=== PATIENT | female | born 1955 | race Hispanic/Latino ===

== ENCOUNTER 2019-01-08 14:03 | Inpatient (IN) | payer MEDICARE ==
[~2019-01-08] VITALS: Ht 160 cm; Wt 93.0 kg
--- NOTE | 2019-01-08 16:15 | Diagnostic Imaging Report ---
Abdomen, 2 views, with upright chest. History: Weakness, vomiting, fever, left arm pain. Findings: Cardiac silhouette and pulmonary vessels are normal. The lungs are clear. Air is scattered throughout nondilated small and large bowel. There are no air-fluid levels. There is no evidence of free air. There are no masses or abnormal calcifications. The osseous structures are intact. IMPRESSION: 1. No pulmonary abnormality. 2. Nonobstructive bowel gas pattern. Signed by: Arnold Danielle on 01/08/2019 4:12 PM
[2019-01-08 16:24] LABS: BASOPHILS # (AUTO) 0.1 (0.0-0.1); BASOPHILS % 0.5 % (0.0-1.0); HEMATOCRIT 29.8 % (34.2-44.1); HEMOGLOBIN 9.4 g/dL (12.0-16.0); LYMPHOCYTES # (AUTO) 1.1 (1.0-3.2); MEAN CORPUSCULAR HEMOGLOBIN 30.1 pg (28-32); MEAN CORPUSCULAR HGB CONC 31.5 g/dL (31-35); MEAN CORPUSCULAR VOLUME 95.5 fL (81-99); MONOCYTES # (AUTO) 0.4 (0.2-0.8); MONOCYTES % 3.7 % (4.4-11.3); NEUTROPHILS # (AUTO) 7.8 (2.1-6.9); NEUTROPHILS % 82.9 % (38.7-80.0); PLATELET COUNT 342 x10e3/uL (140-360); RED BLOOD COUNT 3.12 x10e6/uL (3.6-5.1); RED CELL DISTRIBUTION WIDTH 16.4 % (11.7-14.4)
[2019-01-08 16:29] LABS: BILIRUBIN,URINE NEGATIVE (NEGATIVE); CLARITY,URINE CLEAR (CLEAR); COLOR,URINE YELLOW (YELLOW); KETONES,URINE NEGATIVE (NEGATIVE); LEUKOCYTE ESTERASE ,URINE TRACE (NEGATIVE); NITRITE,URINE NEGATIVE (NEGATIVE); PROTEIN,URINE DIPSTICK NEGATIVE (NEGATIVE); URINE UROBILINOGEN 0.2 mg/dL (0.2 - 1)
[2019-01-08 16:35] LABS: INR 0.97; PROTHROMBIN TIME 13.4 seconds (11.9-14.5)
[2019-01-08 16:36] LABS: PARTIAL THROMBOPLASTIN TIME 24.1 seconds (23.8-35.5)
[2019-01-08 16:43] LABS: ALANINE AMINOTRANSFERASE 14 IU/L (0-55); ALBUMIN 3.4 g/dL (3.5-5.0); ALBUMIN/GLOBULIN RATIO 1.1 (0.8-2.0); ALKALINE PHOSPHATASE 107 IU/L (40-150); BLOOD UREA NITROGEN 32 mg/dL (7-26); BUN/CREATININE RATIO 44 (6-25); CALCIUM 9.6 mg/dL (8.4-10.2); CARBON DIOXIDE 23 mmol/L (22-29); CHLORIDE 104 mmol/L (98-107); CREATINE KINASE 35 IU/L (29-168); CREATININE, SERUM 0.72 mg/dL (0.57-1.11); EST GLOMERULAR FILTRATION RATE > 60 ML/MIN (60-); GLUCOSE 134 mg/dL (74-118); SODIUM 136 mmol/L (136-145)
[2019-01-08 16:56] LABS: BACTERIA,URINE MANY /HPF; EPITHELIAL CELLS,URINE MODERATE /LPF
[2019-01-08 17:00] LABS: THYROID STIMULATING HORMONE 0.875 uIU/mL (0.350-4.940)
[2019-01-08] MEDS ORDERED: CEFTRIAXONE SOD 1 GM/NS 50 ML 50 ML IV ONE (17:45)
--- NOTE | 2019-01-08 19:04 | NUR ---
REPORT GIVEN EVA WELDON.
[2019-01-08] MEDS: SODIUM CHLORIDE 0.9% 1000ML 1,000 ML IV SCH (19:05)
--- NOTE | 2019-01-08 19:10 | Diagnostic Imaging Report ---
CT Abdomen And Pelvis with Intravenous Contrast INDICATION: ^nausea and vomiting ^[id number] ^1824 TECHNIQUE: Thin collimation axial images obtained from the diaphragm to the level of the pubic symphysis following the uneventful administration of 100 cc of low osmolar, nonionic intravenous contrast. Dose reduction techniques used: Automated exposure control, adjustment of the mAs and/or kVp according to patient size, standardized low-dose protocol, and/or iterative reconstruction technique. RADIATION DOSE: Total DLP: 763.08 mGy*cm Estimated effective dose: (DLP x 0.015 x size factor) mSv CTDIvol has been reviewed. It is below the limits set by the Radiation Protocol Committee (RPC). COMPARISON: None. ABDOMEN FINDINGS: Lung Bases: Moderate hiatal hernia. The visualized portions of the mediastinum are normal. Liver: Mild steatosis. A cyst in segment 1 measures 1.5 x 1.3 cm. Gallbladder: Present and appears normal. No biliary ductal dilatation. Pancreas: Diffuse fatty atrophy without mass or ductal dilatation. Spleen: Normal in size. No evidence of mass. Adrenal Glands: No evidence for mass. Kidneys: Right: Normal enhancement. No soft tissue mass. No hydronephrosis. Left: Normal enhancement. No soft tissue mass. No hydronephrosis. Lymph Nodes: No lymphadenopathy. Aorta: Normal in diameter. PELVIS FINDINGS: Bowel: Stomach: Collapsed. No evidence of mass. Small Bowel: Normal in caliber with normal wall thickness. Large Bowel: Normal in caliber with normal wall thickness. Appendix: Normal appendix. Bladder: Normal. The uterus is absent. No adnexal mass. Bones: Moderate degenerative changes of the spine and left hip. Mild degenerative changes of the right hip. There is a bone island in the right pelvis measuring 10 mm. IMPRESSION: 1. No evidence for bowel obstruction or inflammation. Normal appendix. 2. Steatosis. Hepatic cyst. 3. Moderate hiatal hernia. Signed by: Dr. Bethany Alcaraz MD on 01/08/2019 7:07 PM
[2019-01-08] MEDS ORDERED: AZO CRANBERRY1 EAC1 PO (19:37)
[2019-01-08] MEDS ORDERED: FERROUS SULFATE PO (19:37)
[2019-01-08] MEDS ORDERED: MULTIVITAMINS1 EAC7 PO (19:37)
[2019-01-08] MEDS ORDERED: OXYBUTYNIN CHLOR5 MG PO (19:37)
--- OUTSIDE RECORDS SUMMARY | 2019-01-08 20:11 | XMS REPORT ---
Author Author [facility] Address Unknown Phone Unavailable Care Team Providers Care Patrol Supervisor Name Role Phone Ginny MAE Unavailable Unavailable Problems This patient has no known problems. Allergies, Adverse Reactions, Alerts This patient has no known allergies or adverse reactions. Medications This patient has no known medications. Results Test Description Test Time Test Comments Text Results Atomic Results Result Comments CT ABDOMEN/PELVIS W 2019-01-08 18:45:00 [place] [address] Patient Name: RASTA SEXTON MR #: [id number] : 1955 Age/Sex: 63/F Req #: [id number] Adm Physician: Ordered by: MARINE HORTON FORKLIFT PICKER Report #: [id number] Location: ER Room/Bed: Procedure: [id number] CT/CT ABDOMEN/PELVIS W Exam Date: 01/08/19 Exam Time: 1823 REPORT STATUS: Signed CT Abdomen And Pelvis with Intravenous Contrast IN DICATION: nausea and vomiting [id number] TECHNIQUE: Thin collimation axial images obtained from the diaphragm to the level of the pubic symphysis following the uneventful administration of 100 cc of low osmolar, nonionic intravenous contrast. Dose reduction techniques used: Automated exposure control, adjustment of the mAs and/or kVp according to patient size, standardized low-dose protocol, and/or iterative reconstruction technique. RADIATION DOSE: Total DLP: 763.08 mGy*cm Estimated effective dose: (DLP x 0.015 x size factor) mSv CTDIvol has been reviewed. It is below the limits set by the Radiation Protocol Committee (RPC). COMPARISON: None. ABDOMEN FINDINGS: Lung Bases: Moderate hiatal hernia. The visualized portions of the mediastinum are normal. Liver: Mild steatosis. A cyst in segment 1 measures 1.5 x 1.3 cm. Gallbladder: Present and appears normal. No biliary ductal dilatation. Pancreas: Diffuse fatty atrophy without mass or ductal dilatation. Spleen: Normal in size. No evidence of mass. Adrenal Glands: No evidence for mass. Kidneys: Right: Normal enhancement. No soft tissue mass. No hydronephrosis. Left: Normal enhancement. No soft tissue mass. No hydronephrosis. Lymph Nodes: No lymphadenopathy. Aorta: Normal in diameter. PELVIS FINDINGS: Bowel: Stomach: Collapsed. No evidence of mass. Small Bowel: Normal in caliber with normal wall thickness. Large Bowel: Normal in caliber with normal wall thickness. Appendix: Normal appendix. Bladder: Normal. The uterus is absent. No adnexal mass. Bones: Moderate degenerative changes of the spine and left hip. Mild degenerative changes of the right hip. There is a bone island in the right pelvis measuring 10 mm. IMPRESSION: 1. No evidence for bowel obstruction or inflammation. Normal appendix. 2. Steatosis. Hepatic cyst. 3. Moderate hiatal hernia. Signed by: Dr. Ashanti Alcaraz MD on 01/08/2019 7:07 PM Dictated By: ASHANTI ALCARAZ MD 06 Transcribed By: EARLE on 01/08/191906 COPY TO: MARINE HORTON NP ABDOMEN ACUTE SERIES W/PA CXR 2019-01-08 16:11:00 [place] [address] Patient Name: RASTA SEXTON MR #: [id number] : 1955 Age/Sex: 63/F Req #: [id number] Adm Physician: Ordered by: HIGINIO MAE MD Report #: [id number] Location: ER Room/Bed: Procedure: [id number] DX/ABDOMEN ACUTE SERIES W/PA CXR Exam Date: 01/08/19 Exam Time: 1544 REPORT STATUS: Signed Abdomen, 2 views, with upright chest. History: Weakness, vomiting, fever, left arm pain. Findings: Cardiac silhouette and pulmonary vessels are normal. The lungs are clear. Air is scattered throughout nondilated small and large bowel. There are no air-fluid levels. There is no evidence of free air. There are no masses or abnormal calcifications. The osseous structures are intact. IMPRESSION: 1. No pulmonary abnormality. 2. Nonobstructive bowel gas pattern. Signed by: Arnold Danielle on 01/08/2019 4:12 PM Dictated By: ARNOLD DANIELLE MD 161 Transcribed By: EARLE on 01/08/191611 COPY TO: HIGINIO MAE MD
[2019-01-08] MEDS ORDERED: DEXTROSE 50% SYRINGE 50 ML IV PRN (20:15)
[2019-01-08] MEDS ORDERED: ASPIRIN 81 MG CHEW TAB PO ONE (20:15)
[2019-01-08] MEDS ORDERED: MORPHINE SULFATE 2 MG/ML SYR 1ML IV PRN (20:15)
[2019-01-08] MEDS ORDERED: SODIUM CHLORIDE 0.9% 50ML 50 ML ONE (20:20)
[2019-01-08] MEDS ORDERED: IOPAMIDOL 370 MG/ML 200 ML INFUS..BTL INJ ONE (20:20)
[2019-01-08] MEDS: CEFTRIAXONE SOD 1 GM/NS 50 ML 50 ML IV SCH (20:21)
[2019-01-08] MEDS ORDERED: ACETAMINOPHEN 325 MG TAB PO ONE (20:30)
[2019-01-08] MEDS: INSULIN REGULAR, HUMAN 100 UNIT/1 ML 3ML VIAL SQ SCH (21:20)
--- NOTE | 2019-01-08 21:45 | NUR ---
Received patient from er in a stretcher with c/o left side weakness and vomiting since two days.assessment done.no resp.distress no pain voiced.iv fluid running to left ac.tele # [phone] placed.showing sinus rhythm.assisted to use bath room.voided.back to bed safely.bed locked and in lowest position.phone and call light within reach.instructed to call for assistance as needed.
[2019-01-08 22:02] VITALS: BP 128/58
[2019-01-08 22:27] VITALS: BP 128/58
[2019-01-09] VITALS (8 sets, daily range): BP systolic 87–132; BP diastolic 48–73
--- NOTE | 2019-01-09 00:47 | NUR ---
Blood emeterio and sent to the lab for cardiac markers.pt tolerated well.
[2019-01-09 01:14] LABS: CREATINE KINASE 25 IU/L (29-168)
[2019-01-09] MEDS: SODIUM CHLORIDE 0.9% 1000ML 1,000 ML IV SCH (05:32)
--- NOTE | 2019-01-09 06:24 | NUR ---
As per patent's history not having diabetes history.
--- NOTE | 2019-01-09 07:00 | NUR ---
Bed side shift report given to the oncoming rn.walking rounds done.
--- NOTE | 2019-01-09 07:00 | NUR ---
bedside shift report received pt in stable conditions, denies pain at this time, ivf infusing to l fa 18g no ss of infiltration noted, no other co voiced call light in reach will continue to monitor
[2019-01-09 07:02] LABS: CREATINE KINASE 28 IU/L (29-168)
[2019-01-09 07:03] LABS: CHOL/HDL RATIO 3.4 (3.0-3.6)
[2019-01-09] MEDS: INSULIN REGULAR, HUMAN 100 UNIT/1 ML 3ML VIAL SQ SCH (07:30)
[2019-01-09] MEDS: ASPIRIN 325 MG TAB EC PO SCH (09:02)
[2019-01-09] MEDS: CEFTRIAXONE SOD 1 GM/NS 50 ML 50 ML IV SCH ×2 (09:02→20:33)
--- NOTE | 2019-01-09 11:45 | NUR ---
pt states she is not diabetic, notified Stacy Morris NP, orders received
[2019-01-09] MEDS ORDERED: HYDRALAZINE HCL 20 MG/ML VIAL IV PRN (13:15)
[2019-01-09] MEDS ORDERED: ONDANSETRON HCL INJ 2MG/ML 2ML 2 MG/ML VIAL IV PRN (13:15)
--- NOTE | 2019-01-09 15:03 | Diagnostic Imaging Report ---
EXAMINATION: Head CT HISTORY: Left-sided weakness COMPARISON: None. TECHNIQUE: Multidetector axial images were obtained without contrast from the foramen magnum to the vertex . The images were reconstructed using brain and bone algorithms. Thin section brain images were reformatted into coronal and sagittal planes. Image quality: Motion/streaking artifact limits the evaluation of the skull base and posterior cranial fossa. Dose modulation, iterative reconstruction, and/or weight based adjustment of the mA/kV was utilized to reduce the radiation dose to as low as reasonably achievable. FINDINGS: Parenchyma: 1. Few scattered white matter hypodensities, most likely nonspecific chronic microvascular ischemic changes. Otherwise no areas of abnormal density in the brain parenchyma. 2. No mass or hemorrhage. No CT evidence of acute territorial vascular insult. Extra-axial spaces:No abnormal density. No extra-axial fluid collections Brain volume: Normal for age. Ventricles: No hydrocephalus or displacement. Arteries: No density suggestive of thrombus. Dural sinuses: No abnormal density. Extra-axial spaces: No abnormal density. Foramen magnum: No mass, Chiari malformation, or basilar invagination. Sella: No obvious mass. Paranasal/mastoid sinuses: Imaged portions unremarkable. Skull/Scalp: No lytic or blastic lesions. No fractures. IMPRESSION: 1. No acute intracranial hemorrhage or cortical infarcts. 2. Mild chronic microvascular ischemic changes. Signed by: Dr. Petra Soto M.D. on 01/09/2019 3:00 PM
[2019-01-09] MEDS: ACETAMINOPHEN 325 MG TAB PO PRN (15:50)
[2019-01-09] MEDS: FAMOTIDINE 20 MG TAB PO SCH (16:40)
[2019-01-09 17:25] LABS: CREATINE KINASE 85 IU/L (29-168)
--- NOTE | 2019-01-09 19:18 | NUR ---
WALKING ROUNDS PERFORMED, RECEIVED PT LAYING SEMI FOWLERS IN BED, AAOX3, RR EVEN AND NON-LABORED, ON ROOM AIR. NO S/SX OF DISTRESS NOTED. LEFT PT LAYING SEMI FOWLERS IN BED, BED IN LOW LOCKED POSITION, SIDE RAILS UPX2, CALL LIGHT AND PHONE WITHIN REACH.
[2019-01-09] MEDS: ATORVASTATIN 20 MG TAB PO SCH (20:32)
[2019-01-10] VITALS (8 sets, daily range): BP systolic 88–118; BP diastolic 46–60
--- NOTE | 2019-01-10 03:26 | NUR ---
SPOKE WITH TREY IN RADIOLOGY CONCERNING MRI RESULTS NOT POSTED. WAS INFORMED THAT HE WILL INQUIRE IF RADIOLOGIST UNDER CUTTING MACHINE OPERATOR CAN READ MRI. IF NOT WHEN MRI TEAM ARRIVES MRI WILL BE READ.
[2019-01-10 03:52] LABS: BASOPHILS % 0.5 % (0.0-1.0); EOSINOPHILS # (AUTO) 0.1 (0.0-0.4); EOSINOPHILS % 1.6 % (0.0-6.0); LYMPHOCYTES # (AUTO) 1.6 (1.0-3.2); LYMPHOCYTES % 29.1 % (18.0-39.1); MEAN CORPUSCULAR HEMOGLOBIN 30.4 pg (28-32); MEAN CORPUSCULAR VOLUME 98.1 fL (81-99); MONOCYTES # (AUTO) 0.4 (0.2-0.8); MONOCYTES % 7.1 % (4.4-11.3); NEUTROPHILS # (AUTO) 3.3 (2.1-6.9); PLATELET COUNT 196 x10e3/uL (140-360); RED BLOOD COUNT 2.14 x10e6/uL (3.6-5.1); RED CELL DISTRIBUTION WIDTH 16.6 % (11.7-14.4)
[2019-01-10 03:55] LABS: HEMOGLOBIN 6.5 g/dL (12.0-16.0)
--- NOTE | 2019-01-10 03:58 | Diagnostic Imaging Report ---
MRI BRAIN WO HISTORY: Dizziness, weakness, left arm pain COMPARISON: Head CT 01/09/2019 TECHNIQUE: Sagittal T2, axial T2, axial T1, axial T2/FLAIR, axial gradient echo (or susceptibility weighted), coronal T2/FLAIR, and axial diffusion weighted MR images of the brain were obtained without contrast. DISCUSSION: Scalp/bone marrow: Unremarkable. Brain sulci: Appropriate for patient's age. Ventricles: Normal in size and configuration. No hydrocephalus. Extra-axial spaces: No masses or fluid collections. Parenchyma: Scattered T2/FLAIR hyperintense foci throughout the supratentorial white matter are likely chronic microvascular ischemic changes. Otherwise, no mass, hemorrhage, or acute vascular insults. Vessels: Normal flow voids in major arteries and veins. Sellar/Suprasellar region: No abnormalities. Craniocervical junction: No abnormalities. Incidental findings: There is a small right maxillary sinus retention cyst IMPRESSION: 1. No acute intracranial abnormalities. 2. Mild supratentorial chronic microvascular ischemic change. Signed by: Dr. Arian Mercer M.D. on 01/10/2019 3:55 AM
[2019-01-10 04:10] LABS: ANION GAP 10.7 mmol/L (8-16); BLOOD UREA NITROGEN 12 mg/dL (7-26); BUN/CREATININE RATIO 20 (6-25); CALCIUM 8.2 mg/dL (8.4-10.2); CARBON DIOXIDE 23 mmol/L (22-29); CHLORIDE 106 mmol/L (98-107); CREATININE, SERUM 0.59 mg/dL (0.57-1.11); EST GLOMERULAR FILTRATION RATE > 60 ML/MIN (60-); GLUCOSE 96 mg/dL (74-118); POTASSIUM 3.7 mmol/L (3.5-5.1); SODIUM 136 mmol/L (136-145)
[2019-01-10 04:18] LABS: B-TYPE NATRIURETIC PEPTIDE2 66.9 pg/mL (0-100)
[2019-01-10] MEDS ORDERED: SODIUM CHLORIDE 0.9% 250ML 250 ML IV ONE (04:30)
[2019-01-10 04:31] LABS: FERRITIN 18.86 ng/mL (4.63-204.00)
[2019-01-10] MEDS ORDERED: MECLIZINE HCL 12.5 MG TAB PO PRN (04:45)
[2019-01-10 04:57] LABS: FOLATE 19.8 ng/mL (7.0-15.4)
--- NOTE | 2019-01-10 07:34 | NUR ---
Received patient lying in bed with eyes open. Respiration even and unlabored without SOB. Call light in reach.
[2019-01-10] MEDS: OXYBUTYNIN CHLORIDE XL 5 MG TAB PO SCH (08:07)
[2019-01-10] MEDS: CEFTRIAXONE SOD 1 GM/NS 50 ML 50 ML IV SCH ×2 (08:07→21:20)
[2019-01-10] MEDS: FAMOTIDINE 20 MG TAB PO SCH ×2 (08:07→16:44)
[2019-01-10] MEDS: ASPIRIN 325 MG TAB EC PO SCH (08:07)
[2019-01-10] MEDS: ASCORBIC ACID 500 MG TAB PO SCH (08:07)
[2019-01-10] MEDS: FERROUS SULFATE 325 MG TAB PO SCH (08:07)
--- NOTE | 2019-01-10 09:25 | NUR ---
Patient awake, alert. Family members at bedside. 1 Unit of PRBC started. Verified signed consent. Respiration even and unlabored without SOB. VS WNL. No signs of adverse reaction noted at this time. Will continue to monitor patient. Call light within reach.
--- NOTE | 2019-01-10 09:30 | NUR ---
Patient receiving blood transfusion. Tolerating well. No s/s of distress noted. Family at bedside.
--- NOTE | 2019-01-10 11:47 | NUR ---
Left AC IV site noted to be leaking a little under the dressing. No drainage down her arm. Patient stated "I got up and went to the bathroom." Will continue to monitor
--- NOTE | 2019-01-10 12:34 | NUR ---
Patient awake, alert. respiration even and unlabored without SOB. Blood transfusion completed without adverse reaction. VS within normal limits. Call light within reach.
--- NOTE | 2019-01-10 12:34 | NUR ---
Soiled dressing to peripheral IV changed. Respiration even and unlabored. Call light in reach.
[2019-01-10 15:43] LABS: BASOPHILS % 0.7 % (0.0-1.0); EOSINOPHILS # (AUTO) 0.1 (0.0-0.4); EOSINOPHILS % 1.7 % (0.0-6.0); HEMATOCRIT 26.7 % (34.2-44.1); HEMOGLOBIN 8.4 g/dL (12.0-16.0); LYMPHOCYTES # (AUTO) 1.3 (1.0-3.2); LYMPHOCYTES % 22.1 % (18.0-39.1); MEAN CORPUSCULAR HEMOGLOBIN 30.4 pg (28-32); MEAN CORPUSCULAR HGB CONC 31.5 g/dL (31-35); MEAN CORPUSCULAR VOLUME 96.7 fL (81-99); MONOCYTES # (AUTO) 0.5 (0.2-0.8); MONOCYTES % 8.6 % (4.4-11.3); NEUTROPHILS % 66.4 % (38.7-80.0); PLATELET COUNT 228 x10e3/uL (140-360); RED BLOOD COUNT 2.76 x10e6/uL (3.6-5.1); RED CELL DISTRIBUTION WIDTH 16.2 % (11.7-14.4)
[2019-01-10] MEDS: ATORVASTATIN 20 MG TAB PO SCH (21:10)
--- NOTE | 2019-01-10 21:19 | NUR ---
Left IV discontinued.Catheter tip intact. IV initiated in right forearm.
[2019-01-11] VITALS (8 sets, daily range): BP systolic 99–133; BP diastolic 47–70
[2019-01-11] MEDS: ACETAMINOPHEN 325 MG TAB PO PRN (03:08)
[2019-01-11 03:15] LABS: BASOPHILS % 0.6 % (0.0-1.0); EOSINOPHILS # (AUTO) 0.1 (0.0-0.4); EOSINOPHILS % 1.3 % (0.0-6.0); HEMATOCRIT 24.9 % (34.2-44.1); HEMOGLOBIN 7.8 g/dL (12.0-16.0); LYMPHOCYTES # (AUTO) 1.3 (1.0-3.2); LYMPHOCYTES % 28.1 % (18.0-39.1); MEAN CORPUSCULAR HEMOGLOBIN 30.2 pg (28-32); MEAN CORPUSCULAR HGB CONC 31.3 g/dL (31-35); MEAN CORPUSCULAR VOLUME 96.5 fL (81-99); MONOCYTES # (AUTO) 0.4 (0.2-0.8); NEUTROPHILS # (AUTO) 2.8 (2.1-6.9); NEUTROPHILS % 61.4 % (38.7-80.0); PLATELET COUNT 209 x10e3/uL (140-360); RED BLOOD COUNT 2.58 x10e6/uL (3.6-5.1); RED CELL DISTRIBUTION WIDTH 16.4 % (11.7-14.4)
[2019-01-11 03:31] LABS: ANION GAP 10.1 mmol/L (8-16); BLOOD UREA NITROGEN 12 mg/dL (7-26); BUN/CREATININE RATIO 19 (6-25); CALCIUM 8.5 mg/dL (8.4-10.2); CARBON DIOXIDE 25 mmol/L (22-29); CHLORIDE 109 mmol/L (98-107); CREATININE, SERUM 0.64 mg/dL (0.57-1.11); EST GLOMERULAR FILTRATION RATE > 60 ML/MIN (60-); GLUCOSE 96 mg/dL (74-118); POTASSIUM 4.1 mmol/L (3.5-5.1); SODIUM 140 mmol/L (136-145)
[2019-01-11] MEDS: PANTOPRAZOLE SOD 40 MG TABEC PO SCH ×2 (05:45→05:50)
--- NOTE | 2019-01-11 06:23 | NUR ---
Paged placed for consult with , MD Mullen instructed us to contact MD Lau
--- NOTE | 2019-01-11 06:27 | NUR ---
Paged Dr. Lau for consult. Waiting for call back
--- NOTE | 2019-01-11 06:32 | NUR ---
Spoke to Dr. Lau. he stated he will come see patient.
--- NOTE | 2019-01-11 07:25 | NUR ---
Received patient lying in bed with eyes open. Respiration even and unlabored without SOB. Denies pain. Call light within reach.
--- NOTE | 2019-01-11 08:19 | Consultation ---
DATE OF CONSULTATION: 01/10/2019 Urologic Consultation Consultation is called by Dr. Lr. CHIEF UROLOGIC COMPLAINT AND REASON FOR CONSULTATION: Overactive bladder. HISTORY OF PRESENT ILLNESS: Ms. Santos is a very pleasant 63-year-old female with a history of urgency, incontinence, admitted to the hospital, found to have urinary tract infection on admission. She reports nocturia three times, frequency. PAST MEDICAL HISTORY: Please see nurse's notes, negative urologically. Denies seeing prior urologist. MEDICATIONS: Please see MAR. ALLERGIES: NKDA. SOCIAL HISTORY: No smoking or drinking. FAMILY HISTORY: Denied urologic stones or malignancies. REVIEW OF SYSTEMS: Noncontributory, other than problems mentioned above for 12 organ systems. PHYSICAL EXAMINATION: GENERAL: Middle-aged female, in no acute distress. VITAL SIGNS: Currently, temperature 96.8, pulse 85, respirations 18, and blood pressure 98/69. HEENT: Sclerae anicteric. NECK: Supple. BACK: Without costovertebral angle tenderness bilaterally. ABDOMEN: Soft. It is nontender. It is nondistended. There is no palpable mass. No palpable hernias. No palpable adenopathy. : Normal female external genitalia. EXTREMITIES: No edema. NEURO: Moving all four extremities. PSYCH: Alert and mood appropriate. SKIN: Intact. Normal color. PERTINENT LABORATORY DATA: CT scan revealing hiatal hernia, liver cyst. Hemoglobin 6.5, hematocrit 21, platelet count 196,000, and white cell count 5000. Sodium 136, potassium 3.7, chloride 106, bicarb 23, BUN 17, creatinine 0.59, glucose 96, and calcium of 8.2. Urinalysis; 6-10 whites, 0 reds. BMI 35.1. IMPRESSION: 1. Obesity. 2. Urinary tract infection. 3. Urge incontinence. 4. Anemia. PLAN: The patient is on oxybutynin from her primary care doctor, would continue this. The patient would benefit from an outpatient urodynamic studies and possible changing of medicines. Thank you for allowing me to participate in the care of your patient. I will be happy to follow along with you. MD SJ Núñez/MODL /[id number] cc: Luis A Lr MD
[2019-01-11] MEDS: ASCORBIC ACID 500 MG TAB PO SCH (08:55)
[2019-01-11] MEDS: OXYBUTYNIN CHLORIDE XL 5 MG TAB PO SCH (08:55)
[2019-01-11] MEDS: FERROUS SULFATE 325 MG TAB PO SCH (08:55)
[2019-01-11] MEDS: ASPIRIN 325 MG TAB EC PO SCH (08:55)
[2019-01-11] MEDS: CEFTRIAXONE SOD 1 GM/NS 50 ML 50 ML IV SCH ×2 (09:05→20:22)
[2019-01-11] MEDS ORDERED: SODIUM CHLORIDE 0.9% 250ML 250 ML IV ONE (18:00)
[2019-01-11] MEDS ORDERED: FUROSEMIDE INJ 10 MG/ML 2 ML VIAL IV ONE (18:00)
[2019-01-11] MEDS ORDERED: CITRATE OF MAGNESIA 300ML BOTTLE PO ONE (18:00)
--- NOTE | 2019-01-11 20:23 | NUR ---
ROCEPHIN ANTIBIOTIC INFUSING ORDERED, WILL START THE BLOOD TRANSFUSION ONCE THE ANTIBIOTIC IS COMPLETED.
[2019-01-11] MEDS ORDERED: SODIUM CHLORIDE 0.9% 250ML 250 ML ONE (21:12)
[2019-01-11] MEDS: ATORVASTATIN 20 MG TAB PO SCH (21:15)
--- NOTE | 2019-01-11 21:58 | NUR ---
BLOOD TRANSFUSION STARTED AT 2115, FIVE MINUTES INTO THE TRANSFUSION PATIENT STARTED TO C/O PAINFUL SENSATION AT THE IV SITE. IV WAS REMOVED WITH TIP INTACT AND ANOTHER IV STARTED TO THE LEFT FOREARM WHICH PATIENT TOLERATED PROCEDURE WELL. WILL MONITOR CLOSELY.
--- NOTE | 2019-01-11 23:15 | NUR ---
ROUNDS MADE, NO ACUTE DISTRESS OBSERVED. BEDSIDE COMMODE PROVIDED FOR SAFETY, BLOOD INFUSING WITHOUT ADVERSE REACTION, CALL LIGHT WITHIN EASY REACH.
[2019-01-12] VITALS (7 sets, daily range): BP systolic 101–130; BP diastolic 49–61
[2019-01-12] MEDS ORDERED: FUROSEMIDE INJ 10 MG/ML 2 ML VIAL ONE (01:01)
--- NOTE | 2019-01-12 01:06 | NUR ---
BLOOD TRANSFUSION COMPLETED WITHOUT ADVERSE EFFECT, LASIX ADMINISTERED POST TRANSFUSION ORDERED. CALL LIGHT WITHIN EASY REACH, BED SIDE COMMODE CLOSE BY.
[2019-01-12] MEDS: CEFTRIAXONE SOD 1 GM/NS 50 ML 50 ML IV SCH ×2 (07:49→20:53)
[2019-01-12] MEDS: PANTOPRAZOLE SOD 40 MG TABEC PO SCH (07:49)
[2019-01-12 07:55] LABS: BASOPHILS % 0.5 % (0.0-1.0); EOSINOPHILS # (AUTO) 0.1 (0.0-0.4); EOSINOPHILS % 1.3 % (0.0-6.0); HEMATOCRIT 34.3 % (34.2-44.1); LYMPHOCYTES # (AUTO) 1.5 (1.0-3.2); LYMPHOCYTES % 19.5 % (18.0-39.1); MEAN CORPUSCULAR HEMOGLOBIN 30.9 pg (28-32); MEAN CORPUSCULAR HGB CONC 32.1 g/dL (31-35); MEAN CORPUSCULAR VOLUME 96.3 fL (81-99); MONOCYTES # (AUTO) 0.6 (0.2-0.8); MONOCYTES % 7.7 % (4.4-11.3); NEUTROPHILS # (AUTO) 5.6 (2.1-6.9); NEUTROPHILS % 70.6 % (38.7-80.0); PLATELET COUNT 280 x10e3/uL (140-360); RED BLOOD COUNT 3.56 x10e6/uL (3.6-5.1); RED CELL DISTRIBUTION WIDTH 15.8 % (11.7-14.4)
[2019-01-12 08:09] LABS: ANION GAP 14.4 mmol/L (8-16); BLOOD UREA NITROGEN 10 mg/dL (7-26); BUN/CREATININE RATIO 14 (6-25); CALCIUM 9.3 mg/dL (8.4-10.2); CARBON DIOXIDE 29 mmol/L (22-29); CHLORIDE 104 mmol/L (98-107); CREATININE, SERUM 0.69 mg/dL (0.57-1.11); EST GLOMERULAR FILTRATION RATE > 60 ML/MIN (60-); GLUCOSE 94 mg/dL (74-118); POTASSIUM 4.4 mmol/L (3.5-5.1); SODIUM 143 mmol/L (136-145)
[2019-01-12] MEDS: ASPIRIN 325 MG TAB EC PO SCH (09:00)
[2019-01-12] MEDS: FERROUS SULFATE 325 MG TAB PO SCH (09:15)
[2019-01-12] MEDS: ASCORBIC ACID 500 MG TAB PO SCH (09:15)
[2019-01-12] MEDS: OXYBUTYNIN CHLORIDE XL 5 MG TAB PO SCH (09:15)
--- NOTE | 2019-01-12 15:21 | Consultation ---
DATE OF CONSULTATION: 01/11/2019 HISTORY OF PRESENT ILLNESS: A 63-year-old lady with history of degenerative joint disease. She takes nonsteroidal anti-inflammatory drugs on an as needed basis, admitted with urinary tract infection, receiving antibiotic, found to be anemic and guaiac-positive stool. She had 1 unit of blood transfusion so far. Her hemoglobin after transfusion is 7.8. She denied any abdominal discomfort, any constipation or diarrhea, any heartburn other than when she eats spicy food. No acid reflux. No change in weight. She never had upper endoscopy. She had a colonoscopy many years ago. REVIEW OF SYSTEMS: Currently unremarkable. PAST MEDICAL HISTORY: Degenerative joint disease. PAST SURGICAL HISTORY: Partial hysterectomy and cholecystectomy. She does not smoke or drink. PHYSICAL EXAMINATION: GENERAL: She is awake, alert, and oriented. She is overweight. VITAL SIGNS: Temperature 97.5, pulse 76, and blood pressure 110/55. HEENT: Normal sclerae. NECK: Supple. LUNGS: Clear. HEART: Irregularly irregular rhythm. ABDOMEN: Soft, obese, nontender, no acute sign. EXTREMITIES: Unremarkable. CENTRAL NERVOUS SYSTEM: Motor function grossly intact. ALLERGIES: NIL. CURRENT MEDICATIONS: Ceftriaxone, oxybutynin, vitamin C, iron, aspirin, Lipitor, Protonix, Antivert, hydralazine, Zofran, and morphine. LABORATORY DATA: PT and PTT normal. Liver function normal. Stool guaiac positive for blood. Urinalysis show increased white cell count. Urine culture positive for Klebsiella. Iron saturation 6%. BUN and creatinine, normal. Sodium and potassium, normal. IMPRESSION: 1. Guaiac-positive stool. 2. Severe anemia. PLAN: The patient needs to have upper and lower endoscopy. We will continue her Protonix. We will transfuse her one more unit of RBCs to bring her hemoglobin above 7.8, and we will plan for upper and lower endoscopy. Andre Lau MD RD/MODL /[id number]
--- NOTE | 2019-01-12 16:57 | Progress Note ---
DATE: 01/12/2019 SUBJECTIVE: Doing great, awake, alert, oriented, asymptomatic. Her blood count has come up to 11 and 34. Tolerating soft diet well. No GI complaints. OBJECTIVE: VITAL SIGNS: Afebrile, temperature 96.9, blood pressure 108/51. ABDOMEN: Nontender. PLAN: We will plan on starting liquid diet tomorrow. Started to colon prep in order to do upper and lower endoscopy. Andre Lau MD RD/MODL /[id number]
--- NOTE | 2019-01-12 19:22 | NUR ---
Report received from morning rn.patient is lyeing in the bed.
[2019-01-12] MEDS: ATORVASTATIN 20 MG TAB PO SCH (21:15)
--- NOTE | 2019-01-12 23:06 | NUR ---
Assessment done.no resp.distress.no pain voiced.bed locked and in lowest position.voided.ambulates with cane.bed locked an din lowest position.phone and call light within reach.instructed to call for assistance as needed.
[2019-01-13] VITALS (7 sets, daily range): BP systolic 109–124; BP diastolic 51–73
--- NOTE | 2019-01-13 03:30 | NUR ---
BLOOD PARISA AND SENT TO THE LAB .PT TOLERATED WELL.
[2019-01-13 04:02] LABS: BASOPHILS % 0.6 % (0.0-1.0); EOSINOPHILS # (AUTO) 0.1 (0.0-0.4); EOSINOPHILS % 1.9 % (0.0-6.0); HEMATOCRIT 32.2 % (34.2-44.1); HEMOGLOBIN 10.2 g/dL (12.0-16.0); LYMPHOCYTES # (AUTO) 0.9 (1.0-3.2); LYMPHOCYTES % 18.1 % (18.0-39.1); MEAN CORPUSCULAR HEMOGLOBIN 30.2 pg (28-32); MEAN CORPUSCULAR HGB CONC 31.7 g/dL (31-35); MEAN CORPUSCULAR VOLUME 95.3 fL (81-99); MONOCYTES # (AUTO) 0.5 (0.2-0.8); MONOCYTES % 8.9 % (4.4-11.3); NEUTROPHILS # (AUTO) 3.6 (2.1-6.9); NEUTROPHILS % 70.1 % (38.7-80.0); PLATELET COUNT 277 x10e3/uL (140-360); RED BLOOD COUNT 3.38 x10e6/uL (3.6-5.1); RED CELL DISTRIBUTION WIDTH 15.4 % (11.7-14.4)
[2019-01-13 04:14] LABS: ANION GAP 11.1 mmol/L (8-16); BLOOD UREA NITROGEN 12 mg/dL (7-26); BUN/CREATININE RATIO 17 (6-25); CALCIUM 8.8 mg/dL (8.4-10.2); CARBON DIOXIDE 27 mmol/L (22-29); CHLORIDE 105 mmol/L (98-107); EST GLOMERULAR FILTRATION RATE > 60 ML/MIN (60-); GLUCOSE 94 mg/dL (74-118); POTASSIUM 4.1 mmol/L (3.5-5.1); SODIUM 139 mmol/L (136-145)
--- NOTE | 2019-01-13 07:00 | NUR ---
Bed side shift report given to the on coming rn.stable condition.
--- NOTE | 2019-01-13 07:15 | NUR ---
PT RESTING IN BED AA0X3 PT IS IN NO S.S OF DISTRESS DENIES PAIN OR SOB PT IS ON RA IV TO THE LEFT FA 20 G SL PATENT AND DRY PT IS ON TELE RUNNING SR WILL CONTINUE TO MONITOR PT CLOSELY, SIDE RAILSX2, BED WHEELS LOCKED CALL LIGHT IS WITHIN EASY REACH, INSTRUCTED TO CALL FOR ASSISTANCE IF NEEDED
[2019-01-13] MEDS: FERROUS SULFATE 325 MG TAB PO SCH (08:19)
[2019-01-13] MEDS: ASPIRIN 325 MG TAB EC PO SCH (08:19)
[2019-01-13] MEDS: PANTOPRAZOLE SOD 40 MG TABEC PO SCH (08:19)
[2019-01-13] MEDS: CEFTRIAXONE SOD 1 GM/NS 50 ML 50 ML IV SCH ×2 (08:19→20:16)
[2019-01-13] MEDS: ASCORBIC ACID 500 MG TAB PO SCH (08:19)
[2019-01-13] MEDS: OXYBUTYNIN CHLORIDE XL 5 MG TAB PO SCH (08:33)
[2019-01-13] MEDS ORDERED: CITRATE OF MAGNESIA 300ML BOTTLE PO NR (18:00)
--- NOTE | 2019-01-13 18:54 | NUR ---
PAGED MD ANDERSON FOR ORDERS FOR CONSENT. ON NOTES STATES SCOPING WILL BE DONE. PREP STARTED AT 1800 TODAY AWAITING FOR CALL BACK
--- NOTE | 2019-01-13 20:09 | NUR ---
Bed side shift report taken from morning rn.patient is watching TV.stable condition.
[2019-01-13] MEDS: ATORVASTATIN 20 MG TAB PO SCH (21:07)
--- NOTE | 2019-01-13 21:10 | NUR ---
RETURNED THE CALL AND ORDERED TO KEEP THE PATIENT ON CLEAR LIQUID DIET IN ORDER TO DO ENDOSCOPY ON MONDAY.EXPLAINED TO THE PATIENT.HAD SMALL AMOUNT OF BOWEL MOVEMENT.
[2019-01-14] VITALS (8 sets, daily range): BP systolic 88–160; BP diastolic 48–70
--- NOTE | 2019-01-14 03:14 | NUR ---
BLOOD PARISA AND SEN TO THE LAB.
[2019-01-14 03:54] LABS: BASOPHILS % 0.7 % (0.0-1.0); EOSINOPHILS # (AUTO) 0.1 (0.0-0.4); EOSINOPHILS % 1.8 % (0.0-6.0); HEMATOCRIT 30.2 % (34.2-44.1); HEMOGLOBIN 9.7 g/dL (12.0-16.0); LYMPHOCYTES # (AUTO) 1.2 (1.0-3.2); LYMPHOCYTES % 20.3 % (18.0-39.1); MEAN CORPUSCULAR HEMOGLOBIN 30.5 pg (28-32); MEAN CORPUSCULAR HGB CONC 32.1 g/dL (31-35); MONOCYTES # (AUTO) 0.6 (0.2-0.8); MONOCYTES % 9.7 % (4.4-11.3); NEUTROPHILS # (AUTO) 4.1 (2.1-6.9); NEUTROPHILS % 67.3 % (38.7-80.0); PLATELET COUNT 274 x10e3/uL (140-360); RED BLOOD COUNT 3.18 x10e6/uL (3.6-5.1); RED CELL DISTRIBUTION WIDTH 14.6 % (11.7-14.4)
[2019-01-14 04:14] LABS: ANION GAP 11.2 mmol/L (8-16); BLOOD UREA NITROGEN 9 mg/dL (7-26); BUN/CREATININE RATIO 14 (6-25); CALCIUM 8.7 mg/dL (8.4-10.2); CARBON DIOXIDE 27 mmol/L (22-29); CHLORIDE 106 mmol/L (98-107); CREATININE, SERUM 0.66 mg/dL (0.57-1.11); EST GLOMERULAR FILTRATION RATE > 60 ML/MIN (60-); GLUCOSE 86 mg/dL (74-118); POTASSIUM 4.2 mmol/L (3.5-5.1); SODIUM 140 mmol/L (136-145)
[2019-01-14] MEDS ORDERED: ASPIRIN ENTERI325 MG PO (04:53)
[2019-01-14] MEDS ORDERED: Meclizine Hcl PO (04:53)
[2019-01-14] MEDS ORDERED: LIPITOR20 MG PO (04:53)
[2019-01-14] MEDS ORDERED: PROTONIX40 MG/ML PO (04:53)
[2019-01-14] MEDS ORDERED: ASCORBIC ACID500 MG PO (04:53)
[2019-01-14] MEDS ORDERED: FERROUS SULFAT325 MG PO (04:53)
[2019-01-14] MEDS ORDERED: DITROPAN XL5 MG PO (04:53)
[2019-01-14] MEDS ORDERED: CEFTIN PO (04:53)
--- NOTE | 2019-01-14 06:50 | NUR ---
Bed side shift report given to the on coming rn.stable condition.
--- NOTE | 2019-01-14 07:31 | NUR ---
Rcvd patient in report this am. Patient is asleep in bed at this time. No s/s of distress noted
--- NOTE | 2019-01-14 07:58 | NUR ---
Informed Stacy, SALES REPRESENTATIVE BUSINESS COURSES regarding discharge and patient having her procedure tomorrow and not today. She informed to send patient home and her f/u with GI outpt. Informed patient of the plan and patient refuses to be discharged. Informed SALES REPRESENTATIVE BUSINESS COURSES as well.
[2019-01-14] MEDS ORDERED: ONDANSETRON HCL 4 MG ORAL DISINTEGRATING TAB PO PRN (08:30)
[2019-01-14] MEDS: PANTOPRAZOLE SOD 40 MG TABEC PO SCH (08:49)
[2019-01-14] MEDS: CEFTRIAXONE SOD 1 GM/NS 50 ML 50 ML IV SCH ×2 (08:49→21:37)
[2019-01-14] MEDS: FERROUS SULFATE 325 MG TAB PO SCH (08:51)
[2019-01-14] MEDS: ASCORBIC ACID 500 MG TAB PO SCH (08:51)
[2019-01-14] MEDS: OXYBUTYNIN CHLORIDE XL 5 MG TAB PO SCH (08:51)
[2019-01-14] MEDS: ASPIRIN 325 MG TAB EC PO SCH (08:51)
--- NOTE | 2019-01-14 09:06 | NUR ---
PER ZAK AMBROCIO/BEDSIDE, PATIENT HAD CONCERNS ABOUT DC HOME AND NEEDED EGD/COLONOSCOPY. CM PLACED CALL TO DR. PATRICK WHO IS COVERING FOR EFREN. EXPLAINED DR. LAM HAS DC THE PATIENT AND PLANS FOR OUTPATIENT EGD/COLONOSCOPY. HE STATES HE WILL VISIT PATIENT AT THE BEDSIDE DURING LUNCH TIME. CM TO BEDSIDE TO SPEAK WITH PATIENT AND DISCUSS POC AND DC PLAN. ANSWERED QUESTIONS - SHE VERBALIZED UNDERSTANDING OF DISCUSSION AND AGREES WITH DC HOME AND OUTPATIENT EGD/COLONOSCOPY. ZAK AMBROCIO NOTIFIED OF PLAN AND MD BEDSIDE VISIT PLANNED FOR TODAY.CM WILL CONTINUE TO FOLLOW FOR ONGOING ASSESSMENT OF DC NEEDS.
--- NOTE | 2019-01-14 09:39 | NUR ---
EDUCATED ABOUT IMM, SIGNED, FILED IN CHART, WITH COPY LEFT WITH FAMILY AT BEDSIDE.
--- NOTE | 2019-01-14 13:40 | Progress Note ---
DATE: SUBJECTIVE: Doing well, asymptomatic. Awake, alert, and oriented. Tolerating her liquid diet well. Undergoing a bowel prep. Her hemoglobin today 9.7, hematocrit 30, basic metabolite are normal. OBJECTIVE: VITAL SIGNS: She is afebrile, hemodynamically stable. Blood pressure 96/68. ASSESSMENT/PLAN: We will continue her bowel prep today and we are planning on doing her upper and lower endoscopy tomorrow. Andre Lau MD RD/MODL /[id number]
--- NOTE | 2019-01-14 13:41 | NUR ---
Dr. Lau talked to Stacy DENG and informed of holding discharge until tomorrow to do the procedure d/t insurance purposes
[2019-01-14] MEDS ORDERED: PEG (High)/E-LYTE SOLN 4,000 ML BTL PO ONE (18:00)
--- NOTE | 2019-01-14 19:00 | NUR ---
Walking rounds done and report received. Patient is sitting up drinking Golytely. Call grey within reach, bed in lowest position, and locked.
[2019-01-14] MEDS: ATORVASTATIN 20 MG TAB PO SCH (21:37)
--- NOTE | 2019-01-15 | NUR ---
Patient reminded she is NPO for planned procedure and verbalized understanding. She is passing light brownish liquid stool.
[2019-01-15 03:53] LABS: BASOPHILS # (AUTO) 0.1 (0.0-0.1); BASOPHILS % 0.9 % (0.0-1.0); EOSINOPHILS # (AUTO) 0.1 (0.0-0.4); EOSINOPHILS % 2.4 % (0.0-6.0); HEMATOCRIT 31.3 % (34.2-44.1); HEMOGLOBIN 10.2 g/dL (12.0-16.0); LYMPHOCYTES % 16.8 % (18.0-39.1); MEAN CORPUSCULAR HEMOGLOBIN 30.8 pg (28-32); MEAN CORPUSCULAR HGB CONC 32.6 g/dL (31-35); MEAN CORPUSCULAR VOLUME 94.6 fL (81-99); MONOCYTES # (AUTO) 0.5 (0.2-0.8); MONOCYTES % 8.8 % (4.4-11.3); NEUTROPHILS # (AUTO) 4.1 (2.1-6.9); NEUTROPHILS % 70.8 % (38.7-80.0); PLATELET COUNT 281 x10e3/uL (140-360); RED BLOOD COUNT 3.31 x10e6/uL (3.6-5.1); RED CELL DISTRIBUTION WIDTH 14.3 % (11.7-14.4)
[2019-01-15 04:00] VITALS: BP 118/56
[2019-01-15 04:13] LABS: BLOOD UREA NITROGEN 5 mg/dL (7-26); BUN/CREATININE RATIO 8 (6-25); CALCIUM 9.2 mg/dL (8.4-10.2); CARBON DIOXIDE 26 mmol/L (22-29); CHLORIDE 105 mmol/L (98-107); CREATININE, SERUM 0.64 mg/dL (0.57-1.11); EST GLOMERULAR FILTRATION RATE > 60 ML/MIN (60-); GLUCOSE 89 mg/dL (74-118); SODIUM 139 mmol/L (136-145)
--- NOTE | 2019-01-15 07:19 | NUR ---
Patient lying in bed with eyes open. Respiration even and unlabored without SOB. Patient is NPO at this time awaiting for EGD/Colonoscopy. Call light within reach.
[2019-01-15] MEDS: PANTOPRAZOLE SOD 40 MG TABEC PO SCH (07:30)
[2019-01-15 08:28] VITALS: BP 115/58
[2019-01-15] MEDS: ASPIRIN 325 MG TAB EC PO SCH (08:36)
[2019-01-15] MEDS: OXYBUTYNIN CHLORIDE XL 5 MG TAB PO SCH (08:36)
[2019-01-15] MEDS: FERROUS SULFATE 325 MG TAB PO SCH (08:36)
[2019-01-15] MEDS: ASCORBIC ACID 500 MG TAB PO SCH (08:36)
[2019-01-15] MEDS: CEFTRIAXONE SOD 1 GM/NS 50 ML 50 ML IV SCH (09:24)
[2019-01-15 09:37] VITALS: BP 115/58
--- NOTE | 2019-01-15 10:11 | NUR ---
Patient went to surgery at this time for EGD/Colon
--- NOTE | 2019-01-15 12:18 | NUR ---
Patient returning from EGD/Colon. report was called and informed that she had a hiatal hernia on the EGD and polyps and hemorrhoids. No active bleed. Will call primary for discharge
[2019-01-15 12:33] VITALS: BP 136/62
--- NOTE | 2019-01-15 13:28 | NUR ---
Patient is to be discharge to home today as ordered. 20g PIV to left arm discontinued, catheter tip intact. No bleeding noted. Denies pain. Patient is waiting for the daughter to pick her up. Call light within reach.
--- NOTE | 2019-01-15 14:08 | NUR ---
Patient is discharge to home, transported via wheelchair to private auto. Respiration even and unlabored without SOB. Belongings are with the patients.
[2019-01-15] MEDS ORDERED: MIDAZOLAM HCL 2 MG/2 ML VIAL ONE (18:55)
[2019-01-15] MEDS ORDERED: PROPOFOL IV EMULSION 10 MG/ML 50 ML VIAL ONE (18:55)
[2019-01-15] MEDS ORDERED: FENTANYL CITRATE/PF 100MCG/2 ML INJ ONE (18:55)
--- NOTE | 2019-01-16 20:01 | Discharge Summary ---
ADMISSION DIAGNOSES: 1. Urinary tract infection, present on admission. 2. Dizziness with weakness. 3. Microcytic anemia. 4. Obesity with body mass index of 35.1. 5. Overactive bladder. 6. Vomiting. DISCHARGE DIAGNOSES: 1. Urinary tract infection, present on admission. 2. Dizziness with weakness. 3. Microcytic anemia. 4. Obesity with body mass index of 35.1. 5. Overactive bladder. 6. Vomiting. 7. Rule out cerebrovascular accident. 8. Rule out transient ischemic attack. 9. Gastrointestinal bleed. HISTORY: Overactive bladder. SURGICAL HISTORY: Cholecystectomy, hysterectomy. FAMILY HISTORY: The patient's father had diabetes and cancer. Her sister also had cancer. SOCIAL HISTORY: Noncontributory. HOSPITAL COURSE: A 64-year-old female, complains of 2 weeks of dizziness with weakness and associated left arm pain. She denies left arm numbness and weakness. Last night, she had vomiting that woke her up out of her sleep. She had associated chills and sweating. On admission, the patient was started on Rocephin. Carotid Doppler showed no significant stenosis. Echo showed EF of 60%. EKG was normal sinus. Abdominal chest x-ray showed no abnormalities. CT of the abdomen showed no evidence of obstruction or inflammation, steatosis, hepatic cyst, moderate hiatal hernia. CT of the brain was negative. MRI was negative. Urine culture came back positive for Klebsiella. Urology was consulted per the patient requests due to overactive bladder. She resumed her home medicine and she will follow up outpatient for urodynamic studies. GI was also consulted, who wanted to do an upper and lower endoscopy due to a GI bleed, which we found once the stool was positive for blood. The patient's EGD and colonoscopy showed hiatal hernia and polyps with hemorrhoids, and no signs of bleeding. Hemoglobin was stable. The patient was tolerating diet and ready for discharge home. She will follow up with primary care in 1 to 2 weeks, and GI and Urology as discussed. The patient understands discharge instructions and agrees to plan. Vital signs are stable and the patient is afebrile. Dictated by Stacy Morris NP Luis A Lr MD [facility]/MODL /[id number]
== END 2019-01-15 14:08 | disposition home or self-care (01) | DRG 690 ==
LOC: ER 14:03 → INTOOBSV 20:06 → ERHOLD 20:06 → MED/SURG 21:45 → OBSVTOIN 01-10 14:55
PROVIDERS: ADMIT Internal Medicine; ATTEND Internal Medicine
PROC: 30233N1 Transfusion of Nonautologous Red Blood Cells into Peripheral Vein, Percutaneous Approach (ICD-10-PCS; 2019-01-10)
PROC: 0DBL8ZX Excision of Transverse Colon, Via Natural or Artificial Opening Endoscopic, Diagnostic (ICD-10-PCS; principal; 2019-01-15 11:10)
PROC: 0DB78ZX Excision of Stomach, Pylorus, Via Natural or Artificial Opening Endoscopic, Diagnostic (ICD-10-PCS; 2019-01-15 11:10)
DX: N39.0 Urinary tract infection, site not specified (principal); D62 Acute posthemorrhagic anemia; K92.2 Gastrointestinal hemorrhage, unspecified; B96.1 Klebsiella pneumoniae [K. pneumoniae] as the cause of diseases classified elsewhere; R42 Dizziness and giddiness; K29.70 Gastritis, unspecified, without bleeding; K44.9 Diaphragmatic hernia without obstruction or gangrene; R19.5 Other fecal abnormalities; N32.81 Overactive bladder; R35.0 Frequency of micturition; Z68.36 Body mass index [BMI] 36.0-36.9, adult; E66.9 Obesity, unspecified
CPT/HCPCS: 36415; 43239; 45384; 70450; 70551; 74022; 74177; 80048; 80053; 80061; 81001; 82270; 82550; 82553; 82607; 82728; 82746; 82948; 83036; 83540; 83690; 83880; 84443; 84466; 84484; 85025; 85610; 85730; 86850; 86900; 86920; 87086; 87186; 88305; 88312; 93005; 93306; 93880; 96367; 99284; G0378; J0696; J1940; J2250; J3010; J7030; J7050; P9016; Q9967

== ENCOUNTER → 2023-11-22 | Outpatient (REF) | payer MEDICARE ==
[~2023-11-22] MED LIST: ASCORBIC ACID500 MG PO; ASPIRIN ENTERI325 MG PO; AZO CRANBERRY1 EAC1 PO; CEFTIN PO; DITROPAN XL5 MG PO; FERROUS SULFAT325 MG PO; FERROUS SULFATE PO; LIPITOR20 MG PO; MULTIVITAMINS1 EAC7 PO; Meclizine Hcl PO; OXYBUTYNIN CHLOR5 MG PO; PROTONIX40 MG/ML PO
== END ==
LOC: MRI 08:21
PROVIDERS: ATTEND Internal Medicine
DX: M47.26 Other spondylosis with radiculopathy, lumbar region (principal); M54.41 Lumbago with sciatica, right side; M43.17 Spondylolisthesis, lumbosacral region
CPT/HCPCS: 72148

== ENCOUNTER 2024-01-18 08:44 | Outpatient (RCR) | payer MEDICARE | END 2024-01-20 | LOC: PT 08:44 | PROVIDERS: ATTEND Internal Medicine Rheumatology | DX: M15.9 Polyosteoarthritis, unspecified (principal); M25.561 Pain in right knee; M25.562 Pain in left knee; G89.29 Other chronic pain ==

== ENCOUNTER 2024-02-15 07:37 | Outpatient (RCR) | payer MEDICARE | END 2024-02-19 | LOC: PT 07:37 | PROVIDERS: ATTEND Internal Medicine Rheumatology | DX: M25.561 Pain in right knee (principal); M25.562 Pain in left knee; G89.29 Other chronic pain; M47.816 Spondylosis without myelopathy or radiculopathy, lumbar region; M51.36 Other intervertebral disc degeneration, lumbar region ==

== ENCOUNTER 2024-02-27 07:47 | Outpatient (RCR) | payer MEDICARE | END 2024-03-21 | LOC: PT 07:47 | PROVIDERS: ATTEND Internal Medicine Rheumatology | DX: M17.0 Bilateral primary osteoarthritis of knee (principal); M25.562 Pain in left knee; M25.561 Pain in right knee; G89.29 Other chronic pain ==